=== PATIENT | female | born 1945 | race Caucasian/White ===

== ENCOUNTER 2025-03-30 13:19 | Outpatient (AMB) | payer OTHER, SELFPAY ==
--- NOTE | 2025-03-30 13:24 | A.OFFVIS_ITS ---
Vital Signs 3 03/30/25 13:28 Height 5 ft 2 in Weight 201 lb 8 oz BMI 36.9 BP 110/50 L Blood Pressure Location Lt brachial Position Sitting Pulse 71 Pulse Source Pulse Oximeter Pulse Oximetry (%) 92 Oxygen Delivery Method Room Air Intake Visit Reasons: COPD Allergies nitrofurantoin (From Macrobid) Allergy (Intermediate, Verified 03/30/25 13:31) Difficulty Breathing Penicillins Allergy (Intermediate, Verified 03/30/25 13:31) Hives Iodinated Contrast Media (IV Contrast Dye) Allergy (Mild, Verified 03/30/25 13:31) Itching HPI HPI COPD: Details: Susannah is a pleasant 79-year-old female, former 20 pack year smoker, quit 40 years ago with underlying COPD, ELEAZAR on CPAP . She was referred by PCP for pulmonary evaluation. She was previously under the care [place] [facility] but due to insurance issues had to switch providers. She is presenting for management of COPD and ELEAZAR. She reports using the Stiolto inhaler, which she feels is ineffective, especially when she is in a hurry, leading to dyspnea even with minimal exertion such as walking down a corridor or to her car. She also notes intermittent, usually dry and wheezing. The patient has been experiencing these symptoms for quite some time and notes that they occur more frequently when she is in a hurry. She denies prior history of asthma or history of recurrent respiratory infections. 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 She has a history of mild sleep apnea and uses a CPAP machine regularly, although she reports persistent tiredness and frequent nocturnal awakenings to urinate. Her last sleep study indicated mild sleep apnea with oxygen saturation dropping to 84%, and she was advised to resume CPAP therapy. The patient reports a significant weight gain of 30 pounds over the past year, attributing it to stress-related eating habits. She acknowledges decreased physical activity and has been attempting to regain control over her weight. The patient also reports sinus issues, including drainage and occasional brown nasal discharge, which she suspects might be related to dry blood. She uses Flonase but is cautious due to potential nasal irritation and bleeding. [facility] Social History (Updated 03/30/25 @ 13:31 by Alanna Segal [facility]) Patient Tobacco Use Status: Former Tobacco user Review of Systems Const Denies chills, Denies excessive sweating, Denies fever(s), Denies headache(s) and Denies night sweats Eyes Denies dry eyes, Denies irritation and Denies itchy eyes ENT Reports Normal hearing present, Denies headache(s) and Denies sore throat Card Denies chest pain, Denies chest pain at rest, Denies chest pain with activity, Denies claudication, Denies leg edema, Denies orthopnea and Denies paroxysmal nocturnal dyspnea Resp Denies chest congestion, Denies excessive phlegm production, Denies pain on inspiration, Denies pain with cough and Denies stridor Musc Denies myalgias Neuro Reports Normal hearing present and Denies headache(s) Endo Denies excessive sweating Rahul/Lymph Denies lymphadenopathy Aller/Immun Denies itchy eyes and Denies seasonal rhinorrhea Physical Exam Vital Signs: Last Vital Signs Pulse 71 03/30/25 13:28 BP 110/50 L 03/30/25 13:28 Pulse Ox 92 03/30/25 13:28 Oxygen Delivery Method Room Air 03/30/25 13:28 BMI result Body Mass Index 36.9 Neuro Cranial nerves: Yes Normal hearing present Office Procedures 6 Minute Walk Time:: 14:16 SPO2 % at rest: 94 Pulse at rest: 73 SPO2 % during excercise: 91 Pulse during excercise: 98 Pulse after excercise: 92 Distance in yards walked: 92 Hesham Score: 6 Performance Observations:: Patient walked on level ground unassisted at a moderate pace. Patient walked for the entire time maintaining O2 saturation of 91-93% and pulse in the 90's. Patient reports she does get short of breath when walking a distance or on an incline. Patient did not require the use of supplemental oxygen. 12077 - 6 Minute Walk Results Reviewed Results Reviewed: Assessment & Plan Assessment & Plan (1) COPD (chronic obstructive pulmonary disease): Code(s): J44.9 - Chronic obstructive pulmonary disease, unspecified Category: Medical (2) ELEAZAR on CPAP: Code(s): G47.33 - Obstructive sleep apnea (adult) (pediatric) Category: Medical Plan Susannah presents for pulmonary evaluation continuing with respiratory symptoms despite Stiolto, will trial Trelegy. Discussed importance of good oral hygiene to prevent thrush. Last PFT performed 2023 which revealed mild obstructive defect, no need to repeat at this time. 6 minute walk test performed in office the patient does not require supplemental oxygen at this time. Advised patient to continue using the CPAP machine, and will reach out to [facility] to access machine data for pressure settings and efficacy evaluation. The patient is advised to use Neti pots instead of Flonase to reduce nasal irritation and bleeding. She reports prior chest x-ray performed at [facility], will attempt to obtain. All questions were answered and patient is in agreement of plan. Will follow-up in 6-8 weeks to assess effectiveness of Trelegy or sooner if needed. Orders: Orders 2 AMB 6 minute walk 03/30/25 J44.9 - Chronic obstructive pulmonary disease, unspecified Medications: New 2 [id number] 100-62.5-25 mcg (Trelegy Ellipta) 1 inh inhalation DAILY 60 ea 3RF Coding Level of Care Code New Pt Level 4 (91485) Diagnoses COPD (chronic obstructive pulmonary disease) J44.9 ELEAZAR on CPAP G47.33 CPT Codes Coding ([id number])
[2025-03-30 13:28] VITALS: BP 110/50; PULSE 71; O2SAT 92; BMI 36.9
[2025-03-30 14:32] VITALS: PULSE 73; O2SAT 94
--- OUTSIDE RECORDS SUMMARY | 2025-03-30 15:43 | XMS_ITS | Clinical Summary ---
Author Organization [address] [facility] Address [address] [place] [address] Phone Care Team Providers Care Boarding Specialist Name Role Phone Sammy Amato DO Primary Care Provider [phone] Allergies Active Allergy Reactions Criticality Noted Date Comments Iodinated Contrast Media 04/17/2021 Lisinopril 04/17/2021 Nitrofurantoin Monohyd/M-Cryst Shortness of breath High 2024 Nitrofurantoin Shortness of breath,Wheezing High 05/24/2020 Penicillin G 04/17/2021 Medications levothyroxine (SYNTHROID, LEVOTHROID) 88 mcg tablet Take 1 tablet (88 mcg total) by mouth 1 (one) time each day. 1 Active albuterol HFA (PROAIR HFA ; PROVENTIL HFA ; VENTOLIN HFA) 90 mcg/actuation inhaler Inhale 2 puffs by mouth every 6 (six) hours if needed for wheezing or shortness of breath. Cough 1 Active amLODIPine (NORVASC) 5 mg tablet Take 1 tablet (5 mg total) by mouth 1 (one) time each day. Active telmisartan (MICARDIS) 80 mg tablet Take 1 tablet (80 mg total) by mouth daily. 3 Active tiotropium-oloda teroL (Stiolto Respimat) 2.5-2.5 mcg/actuation mist inhalerIndicatio ns:Pulmonary emphysema, unspecified emphysema type (CMS/HCC V24, CMS/HCC V28) INHALE 2 PUFFS ONCE DAILY 4 g 3 5 Active Active Problems Problem Noted Date Diagnosed Date Obesity (BMI 30-39.9) 07/18/2024 Nocturnal hypoxia 05/20/2022 Overview (06/09/2024): Sleep study on 11/09/2021 did not reveal ELEAZAR but patient oxygen dropped to 87% and was <88% for 20 min 05/14/2022 OVERNIGHT OXIMETERY ON RA SHOWED; 1.TIME SPENT <=88%-13MIN 2.LOWEST O2-85% 3.PATIENT QUALIFIES FOR SUPPLEMENT. HTN (hypertension) 05/08/2021 Hypothyroidism 05/08/2021 ELEAZAR (obstructive sleep apnea) 05/08/2021 COPD (chronic obstructive pu lmonary disease) ([facility] V24, [facility] V28) 05/08/2021 Encounters Date Type Department Care Team Description 02/05/2025 Telephone Gastroenterology - [address] [facility] [address] [place] [address] Lore Farmer MD from Last 3 Months Immunizations Name Administration Dates Next Due Pfizer SARS-CoV-2 COVID-19, mRNA, LNP-S, preservative free 05/01/2021 Surgical History Surgery Date Site/Laterality Comments HYSTERECTOMY 1992 PROCEDURE: HISTORICAL HYSTERECTOMY COLONOSCOPY 07/22/2022 - 08/21/2022 left tics, rhoids (prn) Medical History Medical History Date Comments HTN (hypertension) DX:HTN (hyper tension) Family History Medical History Relation Name Comments Leukemia Brother No Known Problems Father Diabetes Maternal Grandmother No Known Problems Mother Thyroid disease Sister 1 No Known Problems Sister 2 Asthma Neg Hx COPD Neg Hx Lung cancer Neg Hx Lung disease Neg Hx Relation Name Status Comments Brother Alive Father Maternal Grandmother Mother Sister 1 Alive Sister 2 Alive Social History Tobacco Use Types Packs/Day Years Used Date Smoking Tobacco: Former Cigarettes 1 22 0 07/22/1960 - 07/22/1982 Smokeless Tobacco: Never Alcohol Use Standard Drinks/Week Comments Never 0 (1 standard drink = 0.6 oz pur e alcohol) Comments Unknown Sex and Gender Information Value Date Recorded Sex Assigned at Not on file Legal Sex Female 10:37 PM EST Gender Identity Not on file Sexual Orientation Not on file Obstetrics History Last Filed Vital Signs Vital Sign Reading Time Taken Comments Blood Pressure 130/80 2024 11:06 AM EST Pulse 71 2024 11:06 AM EST Temperature 36.9 C (98.4 F) 2024 11:06 AM EST Respiratory Rate 16 2024 11:06 AM EST Oxygen Saturation 94% 2024 11:06 AM EST Inhaled Oxygen Concentration - - Weight 87.5 kg (193 lb) 09/03/2024 12:37 PM EST Height 158.8 cm (5' 2.5 ) 09/03/2024 12:37 PM ES T Body Mass Index 34.74 09/03/2024 12:37 PM EST Plan of Treatment Health Maintenance Due Date Last Done Comments Cholesterol Screening (Lipid Panel) 06/30/2022 Falls Risk Assessment 06/30/2022 Medicare Annual Wellness Visit 06/30/2022 Social Influencers of Health Screening 06/30/2022 DTaP,Tdap,and Td Vaccines (2 - Td or Tdap) 07/22/2022 07/22/2012 Zoster Vaccines (3 of 3) 08/30/2023 07/05/2023, 07/2009 Depression Screening 07/22/2024 COVID-19 Vaccine ( season) 2025 03/30/2024, 06/27/2023, 03/22/2023, Additional history exists Influenza Vaccine (#1) 2025 , 06/27/2023, 05/02/2022, Additional history exists Hypertension/CHF/CAD Annual BMP Blood Test 01/05/2026 01/05/2025 Osteoporosis Screening (Bone Density Screening) 09/20/2026 09/20/2016 Hepatitis A Vaccines Aged Out 07/22/2003 No long er eligible based on patient's age to complete this topic Hepatitis B Vaccines Aged Out 07/22/2003 No long er eligible based on patient's age to complete this topic Pneumococcal Vaccine: 50+ Years Completed 08/14/2016, 07/22/2008 RSV Immunization Adult Patients Completed 06/27/2023 HIB Vaccines Aged Out No longer eligi ble based on patient's age to complete this topic HPV Vaccines Aged Out No longer eligi ble based on patient's age to complete this topic IPV Vaccines Aged Out No longer eligi ble based on patient's age to complete this topic MMR Vaccines Aged Out No longer eligi ble based on patient's age to complete this topic Meningococcal ACWY Vaccine Aged Out N o longer eligible based on patient's age to complete this topic Meningococcal B Vaccine Aged Out No l onger eligible based on patient's age to complete this topic RSV Immunization Patients Under 20 months Aged Out No longer eligible based on patient's age to complete this topic Varicella Vaccines Aged Out No longer eligible based on patient's age to complete this topic Procedures Procedure Name Priority Date/Time Associated Diagnosis Comments HELICOBACTER PYLORI ANTIGEN, STOOL Routine 01/15/2025 9:56 AM EDT Memory changes Epigastric abdominal pain COPD (chronic obstructive pulmonary disease) (CMS/HCC V24, CMS/HCC V28) PVC (premature ventricular contraction) Sleep apnea URINALYSIS WITH REFLEX MICROSCOPIC Routine 01/13/2025 1:16 PM EDT UTI (urinary tract infection) Urinary frequency URINALYSIS WITH REFLEX MICROSCOPIC Routine 01/13/2025 1:16 PM EDT UTI (urinary tract infection) Urinary frequency VAGINITIS PATHOGENS BY PCR Routine 01/13/2025 1:16 PM EDT UTI (urinary tract infection) Urinary frequency CULTURE URINE Routine 01/13/2025 1:16 PM EDT UTI (urinary tract infection) Urinary frequency METHYLMALONIC ACID, SERUM Routine 01/12/2025 10:01 AM EDT Memory changes Epigastric abdominal pain COPD (chronic obstructive pulmonary disease) (CMS/HCC V24, CMS/HCC V28) PVC (premature ventricular contraction) Sleep apnea FOLATE Routine 01/12/2025 10:01 AM EDT Memory changes Epigastric abdominal pain COPD (chronic obstructive pulmonary disease) (CMS/HCC V24, CMS/HCC V28) PVC (premature ventricular contraction) Sleep apnea VITAMIN B12 Routine 01/12/2025 10:01 AM EDT Memory changes Epigastric abdominal pain COPD (chronic obstructive pulmonary disease) (CMS/HCC V24, CMS/HCC V28) PVC (premature ventricular contraction) Sleep apnea CBC WITH AUTO DIFFERENTIAL Routine 01/05/2025 10:35 AM EDT Dizziness Sinus disorder Chest congestion Fatigue Chest pain COMPREHENSIVE METABOLIC PANEL Routine 01/05/2025 10:35 AM EDT Dizziness Sinus disorder Chest congestion Fatigue Chest pain CBC AND DIFFERENTIAL Routine 01/05/2025 10:35 AM EDT Dizziness Sinus disorder Chest congestion Fatigue Chest pain THYROID STIMULATING HORMONE Routine 01/05/2025 10:35 AM EDT Dizziness Sinus disorder Chest congestion Fatigue Chest pain from Last 3 Months Results * Helicobacter pylori antigen, stool (01/15/2025 9:56 AM EDT) Helicobacter Pylori Ag Not detected Not detected 01/19/2025 4:09 PM EDT [facility] Comment: This test was performed at [facility] using a chemiluminescent immunoassay intended for the qualitative determination of helicobacter pylori (H. pylori) antigen in human stool. The test is an aid in the diagnosis of patients suspected of H. pylori infection and to measure post therapy response from patients. Assay results should be used in conjunction with other clinical and laboratory data to assist the clinician in making individual patient management decisions. A negative test result does not preclude the possibility of the presence of H. pylori antigen in the specimen, which may occur if the level of antigen is below the detection limit of the test. Antimicrobials, proton pump inhibitors, and bismuth preparations are known to suppress H. pylori and, if ingested, may give a false negative result. In these cases a new fecal sample should be collected and tested 14 days after treatment has stopped. Positive results from patients that have used antibiotics, PPIs, or bismuth compounds in the 14 days prior to fecal sample collection are still considered accurate. This assay has not been evaluated in a pediatric population. This test has been approved as an in vitro diagnostic by the [place] Food and Drug Administration. Test performed at [facility], [address] , [place] [address] Grecia Rowe MD, PhD - Barkeeper Stool Rectum structure / Unknown Non-blood Collection / Unknown 01/15/2025 9:56 AM EDT 01/15/2025 9:56 AM EDT Cedric Vega LAB BODY FLUIDS AND STOOLS ORDER NIRAV Final Result [facility] [address] [place] [address] * (ABNORMAL) Urinalysis with reflex microscopic (01/13/2025 1:16 PM EDT) Specific [place] Urine 1.013 1.003 - 1.030 LAB URINALYSIS - AUTOMATED METHOD [facility] 3:[facility] pH, Urine 5.5 5.0 - 8.0 pH LAB URINALYSIS - AUTOMATED METHOD 01/13/2025 3:51 PM [facility] Leukocytes, Urine Large(A) Negative LAB URINALYSIS - AUTOMATED METHOD 01/13/2025 3:51 PM [facility] Nitrite, Urine Negative Negative LAB URINALYSIS - AUTOMATED METHOD 01/13/2025 3:51 PM [facility] Protein, Urine 30(A) <=Trace mg/dL LAB URINALYSIS - AUTOMATED METHOD 01/13/2025 3:51 PM [facility] Glucose, Urine Negative Negative mg/dL LAB URINALYSIS - AUTOMATED METHOD 01/13/2025 3:51 PM [facility] Ketones, Urine Negative Negative mg/dL LAB URINALYSIS - AUTOMATED METHOD 01/13/2025 3:51 PM [facility] Urobilinogen, Urine 0.2 0.2 - 1.0 mg/dL LAB URINALYSIS - AUTOMATED METHOD 01/13/2025 3:51 PM [facility] Bilirubin, Urine Negative Negative LAB URINALYSIS - AUTOMATED METHOD 01/13/2025 3:51 PM EDT [facility] Blood, Urine Small(A) Negative LAB URINALYSIS - AUTOMATED METHOD 01/13/2025 3:51 PM EDT [facility] RBC, Urine 2 0 - 4 /HPF LAB URINALYSIS - AUTOMATED METHOD 01/13/2025 3:51 PM EDT [facility] WBC, Urine 50(H) 0 - 4 /HPF LAB URINALYSIS - AUTOMATED METHOD 01/13/2025 3:51 PM EDT [facility] Squamous Epithelial, Urine 10 0 - 60 /LPF LAB URINALYSIS - AUTOMATED METHOD 01/13/2025 3:51 PM EDT [facility] Bacteria, Urine Few(A) Negative /HPF LAB URINALYSIS - AUTOMATED METHOD 01/13/2025 3:51 PM EDT [facility] Hyaline Casts, Urine 4(H) 0 - 3 /LPF LAB URINALYSIS - AUTOMATED METHOD 01/13/2025 3:51 PM EDT [facility] Urine Urine specimen obtained by clean catch procedure / Unknown Non-blood Collection / Unknown 01/13/2025 1:16 PM EDT 01/13/2025 1:16 PM EDT us Jenkins Eduardo CASTING AND PASTING SUPERVISOR LAB URINE ORDERABLES Final Resul t [facility] [address] [place] [address], * Vaginitis pathogens molecular study (01/13/2025 1:16 PM EDT) Trichomonas vaginalis Negative Negative 01/14/2025 10:57 AM EDT [facility] Gardnerella vaginalis Negative Negative 01/14/2025 10:57 AM EDT [facility] Monica Species Negative Negative 10:57 AM EDT [facility] Swab Vaginal structure / Unknown Non-blood Collection / Unknown 01/13/2025 1:16 PM EDT 01/13/2025 1:16 PM EDT Jenkins Eduardo CASTING AND PASTING SUPERVISOR LAB MICROBIOLOGY - GENERAL ORDER NIRAV Final Result [facility] [address] [place] [address], [place] [phone] * (ABNORMAL) Culture urine (01/13/2025 1:16 PM EDT) Culture, Urine 50,000-100,000 CFU/mL Escherichia coli(A) [place] 01/15/2025 8:17 AM EDT [facility] Urine Urine specimen from urethra / Unknown Non-blood Collection / Unknown 01/13/2025 1:16 PM EDT 01/13/2025 1:16 PM EDT Narrative Organism Antibiotic Method Susceptibility Escherichia coli Amoxicillin/Clavulanate [place] <=2 ug/ml: Susceptible Escherichia coli Ampicillin/Sulbactam [place] <=2 ug/ml: Susceptible Escherichia coli Piperacillin/Tazobactam [place] <=4 ug/ml: Susceptible Escherichia coli Cefazolin (Urine) [place] <=1 ug/ml: Susceptible Escherichia coli Cefoxitin [place] <=4 ug/ml: Susceptible Escherichia coli Ceftazidime [place] <=0.5 ug/ml: Susceptible Escherichia coli Ceftriaxone [place] <=0.25 ug/ml: Susceptible Escherichia coli Cefepime [place] <=0.12 ug/ml: Susceptible Escherichia coli Meropenem [place] <=0.25 ug/ml: Susceptible Escherichia coli Amikacin [place] 2 ug/ml: Susceptible Escherichia coli Gentamicin [place] <=1 ug/ml: Susceptible Escherichia coli Ciprofloxacin [place] <=0.06 ug/ml: Susceptible Escherichia coli Levofloxacin [place] <=0.12 ug/ml: Susceptible Escherichia coli Nitrofurantoin [place] <=16 ug/ml: Susceptible Escherichia coli Trimethoprim/Sulfamethoxazole [place] <=20 ug/ml: Susceptible us Jenkins Eduardo CASTING AND PASTING SUPERVISOR LAB MICROBIOLOGY - GENERAL ORDER NIRAV Final Result Performing Organization Address [facility] Co de Phone Number [facility] [address] [place] [address], [place] [phone] * (ABNORMAL) Methylmalonic acid, serum (01/12/2025 10:01 AM EDT) Methylmalonic Acid 0.41(H) <0.40 umol/L 01/15/2025 6:50 AM EDT [facility] Comment: If applicable, any drug confirmation testing reported here was developed and the performance characteristics determined by [facility]. This confirmation testing has not been cleared or approved by the FDA. The laboratory is regulated under CLIA as qualified to perform high-complexity testing. This test is used for patient testing purposes. It should not be regarded as investigational or for research. Test performed at [facility], [address] , [place] [address] Grecia Rowe MD, PhD - Barkeeper Blood Venous blood specimen / Unknown Venipuncture / Unknown 01/12/2025 10:01 AM EDT 01/12/2025 10:01 AM EDT Cedric Ferrari LAB BLOOD ORDERABLES Final Resul t Performing Organization Address [facility] Co de Phone Number [facility] [address] [place] [address] * (ABNORMAL) Folate (01/12/2025 10:01 AM EDT) Folate 18.6(H) 2.8 - 17.0 ng/ml LAB CHEMISTRY METHOD 01/12/2025 12:45 PM EDT [facility] Blood Venous blood specimen / Unknown Venipuncture / Unknown 01/12/2025 10:01 AM EDT 01/12/2025 10:01 AM EDT Cedric Ferrari LAB BLOOD ORDERABLES Final Resul t [facility] [address] [place] [address], * Vitamin B12 (01/12/2025 10:01 AM EDT) [facility] Vitamin B-12 387 250 - 900 pcg/mL LAB CHEMISTRY METHOD 01/12/2025 12:45 PM EDT [facility] Blood Venous blood specimen / Unknown Venipuncture / Unknown 01/12/2025 10:01 AM EDT 01/12/2025 10:01 AM EDT Cedric Ferrari LAB BLOOD ORDERABLES Final Resul t [facility] [address] [place] [address], * (ABNORMAL) CBC auto differential (01/05/2025 10:35 AM EDT) [facility] WBC 6.5 4.8 - 10.8 K/mcL LAB HEMETOLOGY METHOD 01/05/2025 11:09 AM EDT [facility] RBC 4.00 3.80 - 4.80 M/mcL LAB HEMETOLOGY METHOD 01/05/2025 11:09 AM EDT [facility] Hemoglobin 12.3 11.5 - 16.0 g/dL LAB HEMETOLOGY METHOD 01/05/2025 11:09 AM EDT [facility] Hematocrit 37.9 35.0 - 47.0 % LAB HEMETOLOGY METHOD 01/05/2025 11:09 AM EDT [facility] MCV 94.3 79.0 - 98.0 FL LAB HEMETOLOGY METHOD 01/05/2025 11:09 AM EDT [facility] MCH 30.6 27.0 - 32.0 pcg LAB HEMETOLOGY METHOD 01/05/2025 11:09 AM EDT [facility] MCHC 32.5 32.0 - 37.0 g/dL LAB HEMETOLOGY METHOD 01/05/2025 11:09 AM [facility] RDW 12.8 11.0 - 15.0 % LAB HEMETOLOGY METHOD 01/05/2025 11:09 AM [facility] Platelets 207 130 - 400 K/mcL LAB HEMETOLOGY METHOD 01/05/2025 11:09 AM [facility] MPV 11.6(H) 7.0 - 11.0 FL LAB HEMETOLOGY METHOD 01/05/2025 11:09 AM [facility] NRBC 0.0 <1.0 % LAB HEMETOLOGY METHOD 01/05/2025 11:09 AM [facility] NRBC Absolute 0.00 <0.10 K/mcL LAB HEMETOLOGY METHOD 01/05/2025 11:09 AM [facility] Neutrophils Relative 51.6 % LAB HEMETOLOGY METHOD 01/05/2025 11:09 AM [facility] Lymphocytes Relative 35.5 % LAB HEMETOLOGY METHOD 01/05/2025 11:09 AM [facility] Monocytes Relative 9.3 % LAB HEMETOLOGY METHOD 01/05/2025 11:09 AM [facility] Eosinophils Relative 2.5 % LAB HEMETOLOGY METHOD 01/05/2025 11:09 AM [facility] Basophils Relative 0.8 % LAB HEMETOLOGY METHOD 01/05/2025 11:09 AM [facility] Immature Granulocytes Relative 0.3 % LAB HEMETOLOGY METHOD 01/05/2025 11:09 AM [facility] Neutrophils Absolute 3.37 1.50 - 7.00 K/mcL LAB HEMETOLOGY METHOD 01/05/2025 11:09 AM [facility] Lymphocytes Absolute 2.32 1.00 - 5.00 K/mcL LAB HEMETOLOGY METHOD 01/05/2025 11:09 AM EDT [facility] Monocytes Absolute 0.61 0.20 - 1.00 K/mcL LAB HEMETOLOGY METHOD 01/05/2025 11:09 AM EDT [facility] Eosinophils Absolute 0.16 0.00 - 0.50 K/[facility] HEMETOLOGY METHOD 01/05/2025 11:09 AM EDT [facility] Basophils Absolute 0.05 0.00 - 0.20 K/[facility] HEMETOLOGY METHOD 01/05/2025 11:09 AM EDT [facility] Immature Granulocytes Absolute 0.02 0.00 - 0.03 K/[facility] HEMETOLOGY METHOD 01/05/2025 11:09 AM EDT [facility] Blood Venous blood specimen / Unknown Venipuncture / Unknown 01/05/2025 10:35 AM EDT 01/05/2025 10:35 AM EDT [facility] BLOOD ORDERABLES Final Resul t Performing Organization Address City/[facility]/ZIP Co de Phone Number [facility] [address] [place] [address], * Thyroid stimulating hormone (01/05/2025 10:35 AM EDT) TSH 1.27 0.40 - 4.00 mcIU/mL LAB CHEMISTRY METHOD 01/05/2025 1:37 PM EDT [facility] Blood Venous blood specimen / Unknown Venipuncture / Unknown 01/05/2025 10:35 AM EDT 01/05/2025 10:35 AM EDT [facility] BLOOD ORDERABLES Final Resul t [facility] [address] [place] [address], [place] [phone] * (ABNORMAL) Comprehensive metabolic panel (01/05/2025 10:35 AM EDT) Sodium 142 133 - 145 mmol/L LAB CHEMISTRY METHOD 01/05/2025 12:41 PM [facility] Potassium 4.0 3.5 - 5.5 mmol/L LAB CHEMISTRY METHOD 01/05/2025 12:41 PM [facility] Chloride 109 96 - 110 mmol/L LAB CHEMISTRY METHOD 01/05/2025 12:41 PM [facility] CO2 25 21 - 32 mmol/L LAB CHEMISTRY METHOD 01/05/2025 12:41 PM [facility] Anion Gap 8 3 - 11 LAB CHEMISTRY METHOD 01/05/2025 12:41 PM [facility] Glucose 90 70 - 100 mg/dL LAB CHEMISTRY METHOD 01/05/2025 12:41 PM [facility] BUN 13 5 - 25 mg/dL LAB CHEMISTRY METHOD 01/05/2025 12:41 PM [facility] Creatinine 0.67 0.50 - 1.10 mg/dL LAB CHEMISTRY METHOD 01/05/2025 12:41 PM [facility] eGFR 88 >=60 mL/min/1. 73m2 LAB CHEMISTRY METHOD 01/05/2025 12:41 PM [facility] Comment:Calculation based on the Chronic Kidney Disease Epidemiology Collaboration (CKD-EPI) equation refit without adjustment for race. BUN/Creatinine Ratio 19.4 LAB CHEMISTRY METHOD 01/05/2025 12:41 PM [facility] Calcium 8.4(L) 8.5 - 10.5 mg/dL LAB CHEMISTRY METHOD 01/05/2025 12:41 PM [facility] AST (SGOT) 14 10 - 42 unit/L LAB CHEMISTRY METHOD 01/05/2025 12:41 PM EDT [facility] ALT (SGPT) 22 10 - 60 unit/L LAB CHEMISTRY METHOD 01/05/2025 12:41 PM EDT [facility] Alkaline Phosphatase 78 42 - 121 unit/L LAB CHEMISTRY METHOD 01/05/2025 12:41 PM EDT [facility] Total Protein 6.5 6.0 - 8.0 g/dL LAB CHEMISTRY METHOD 01/05/2025 12:41 PM EDT [facility] Albumin 3.6 3.2 - 5.0 g/dL LAB CHEMISTRY METHOD 01/05/2025 12:41 PM EDT [facility] Total Bilirubin 0.7 0.0 - 1.4 mg/dL LAB CHEMISTRY METHOD 01/05/2025 12:41 PM EDT [facility] Blood Venous blood specimen / Unknown Venipuncture / Unknown 01/05/2025 10:35 AM EDT 01/05/2025 10:35 AM EDT us Cedric Ferrari LAB BLOOD ORDERABLES Final Resul t [facility] [address] [place] [address], [place] [phone] from Last 3 Months Insurance [facility] MEDICARE ADVANTAGE on file Advance Directives Documents on File Type Date Recorded 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 Health Care Decision (hx) 05/26/2020 AD [place]CG[place] DIRECTIVE Health Care Decision (hx) 05/26/2020 AD MCG[place]E DIRECTIVE Health Care Decision (hx) 05/26/2020 AD MCG[place]E DIRECTIVE Health Care Decision (hx) 05/26/2020 AD MCGHEE DIRECTIVE Health Care Decision (hx) 05/26/2020 AD MCGHEE DIRECTIVE Health Care Decision (hx) 05/26/2020 AD MCGHEE DIRECTIVE Health Care Decision (hx) 05/26/2020 AD MCGHEE DIRECTIVE Health Care Decision (hx) 05/26/2020 AD MCGHEE DIRECTIVE Health Care Decision (hx) 05/26/2020 AD MCGHEE DIRECTIVE Health Care Decision (hx) 05/26/2020 AD MCGHEE DIRECTIVE Health Care Decision (hx) 05/26/2020 AD MCGHEE DIRECTIVE Health Care Decision (hx) 05/26/2020 AD MCGHEE DIRECTIVE Health Care Decision (hx) 05/26/2020 AD MCGHEE DIRECTIVE Health Care Decision (hx) 05/24/2020 AD MCGHEE DIRECTIVE Health Care Decision (hx) 05/24/2020 AD MCGHEE DIRECTIVE Health Care Decision (hx) 05/24/2020 AD MCGHEE DIRECTIVE Health Care Decision (hx) 05/24/2020 AD MCGHEE DIRECTIVE Health Care Decision (hx) 05/24/2020 AD MCGHEE DIRECTIVE Health Care Decision (hx) 05/24/2020 AD MCGHEE DIRECTIVE Health Care Decision (hx) 05/24/2020 AD MCGHEE DIRECTIVE Health Care Decision (hx) 05/24/2020 AD MCGHEE DIRECTIVE Health Care Decision (hx) 05/24/2020 AD MCGHEE DIRECTIVE Health Care Decision (hx) 05/24/2020 AD MCGHEE DIRECTIVE Health Care Decision (hx) 05/24/2020 AD MCGHEE DIRECTIVE Health Care Decision (hx) 05/24/2020 AD MCGHEE DIRECTIVE Health Care Decision (hx) 05/24/2020 AD MCGHEE DIRECTIVE Health Care Decision (hx) 05/24/2020 AD MCGHEE DIRECTIVE Care Teams Boarding Specialist Relationship Specialty Start Date End Date Sammy Amato DO [address] [place] [phone] PCP - General Internal Medicine 08/24/20
--- OUTSIDE RECORDS SUMMARY | 2025-03-30 15:43 | XMS_ITS | Clinical Summary ---
Author Organization [facility] Address [address] [facility] [address] [place] [phone] Phone Care Team Providers Care Web Content Executive Name Role Phone Sammy Amato DO Primary Care Provider [phone] Allergies Active Allergy Reactions Criticality Noted Date Comments Iodinated Contrast Media Itching 05/05/2014 Lactose 05/26/2020 Lisinopril 04/17/2021 Nitrofurantoin Shortness Of Breath,Wheezing High 09/2019 Penicillins Hives,Swelling Low 05/05/2014 Medications amLODIPine (NORVASC) 5 MG tablet Take 5 mg by mouth. 08/30/2023 Active estradioL (ESTRACE) 0.01 % (0.1 mg/gram) vaginal cream 05/23/2024 Activ e STIOLTO RESPIMAT 2.5-2.5 mcg/actuation inhaler Inhale 2 puffs into the lungs. 12/24/2023 Active levothyroxine (SYNTHROID, LEVOTHROID) 88 MCG tablet 1 tablet on an empty stomach in the morning Active telmisartan (MICARDIS) 80 MG tablet Take 1 tablet by mouth every morning. 05/22/2024 Active meloxicam (MOBIC) 7.5 MG tablet Take 1 tablet (7.5 mg total) by mouth daily. 30 tablet 2 06/24/2024 Active Social History Tobacco Use Types Packs/Day Years Used Date Smoking Tobacco: Never Smokeless Tobacco: Never Tobacco Cessation:Counseling Given: Not Answered Education Answer Date Recorded Are you interested in more education? Not on zhao e 05/12/2024 Are you concerned about learning? Not on file 05/12/2024 No 05/12/2024 No 05/12/2024 Digital Access Answer Date Recorded No 05/12/2024 No 05/12/2024 Reliable internet access at home? Not on file 05/12/2024 Device with a working camera? Not on file Comments Unknown Sex and Gender Information Value Date Recorded Sex Assigned at Not on file Legal Sex Female 9:10 AM EDT Gender Identity Not on file Sexual Orientation Not on file Plan of Treatment Health Maintenance Due Date Last Done Comments CREATININE LEVEL 1943 POTASSIUM LEVEL 1943 TSH LEVEL 1943 DEPRESSION SCREENING 1955 PNEUMOCOCCAL VACCINES (50+ years) (1 of 1 - PCV) 1993 OSTEOPOROSIS SCREENING INITIAL (ONE-TIME) 2008 Adult Td,Tdap Booster 07/22/2022 07/22/2012 ZOSTER VACCINES (3 of 3) 08/30/2023 07/05/2023, 07/2009 INFLUENZA VACCINE (#1) 2025 , 06/27/2023, 05/02/2022, Additional history exists COVID-19 VACCINE ( season) 2025 03/30/2024, 06/27/2023, 03/22/2023, Additional history exists RSV VACCINE Completed 06/27/2023 HEPATITIS A VACCINES Aged Out No long er eligible based on patient's age to complete this topic HIB VACCINES Aged Out No longer eligi ble based on patient's age to complete this topic MENINGOCOCCAL VACCINES (ACWY) Aged Out No longer eligible based on patient's age to complete this topic MENINGOCOCCAL VACCINES (B) Aged Out N o longer eligible based on patient's age to complete this topic Medical Devices Not on file Insurance [employer] MEDICARE REPLACEMENT [employer] PPO MEDICARE REPLACEMENT [employer] PPO MEDICARE REPLACEMENT [employer] PPO MEDICARE REPLACEMENT HUMAN PPO MEDICARE REPLACEMENT [employer] PPO MEDICARE REPLACEMENT Care Teams Web Content Executive Relationship Specialty Start Date End Date Sammy Amato DO [address] [place] [address] [address] [place] [address] PCP - General Internal Medicine 05/12/24 Additional Source Comments The information contained in this document represents components of the legal health record. It is not the complete legal health record.[facility]
--- OUTSIDE RECORDS SUMMARY | 2025-03-30 15:43 | XMS_ITS ---
Author Name [facility] Organization Unknown Encounters Encounter Type Encounter Reason Primary Diagnosis Location Date Ambulatory [facility] 09/23/2024 Ambulatory [facility] 09/23/2024 Ambulatory [facility] 09/23/2024
--- OUTSIDE RECORDS SUMMARY | 2025-03-30 15:43 | XMS_ITS | Patient Health Record ---
Author Organization [facility] Address [address] [place] [address] Care Team Providers Care Casting Machine Service Operator Name Role Phone Lima NASCIMENTO, Sammy Primary Care Provider Amirah Estrada Unavailable [phone] Allergies Allergen (clinical drug ingredient) Drug/Non Drug Allergy documented on EMR Reaction Allergy Type Onset Date Status Iodine Unknown Drug Allergy Active Penicillin Unknown Drug Allergy Active Reason For Referral No Information Medications Medication SIG (Take, Route, Frequency, Duration) Notes Start Date End Date Status LamISIL 250 MG 1 tablet Orally Once a day for 7 days stop for 3 weeks repeat cylce 12 months; Duration: 365 days 03/07/2018 Not-Taking Diclofenac Sodium 1 % as directed Transdermal Four times a day; Duration: 30 days 05/12/2019 Not-Taking Lamisil 250mg 1 tablet for 7 days,stop for 3 weeks repeat cycle orally as directed; Duration: 90 days 03/13/2021 Not-Taking ASO Ankle/Foot Stablizing AFO As directed Wear Daily; Duration: as needed 04/14/2019 Not-Taking Losartan Potassium 50 MG 1 tablet Orally Once a day Not-Taking Telmisartan 80 MG 1 tablet Orally Once a day Active Citalopram Hydrobromide 10 MG/5ML 5 ml Orally Once a day Active amLODIPine Besylate 10 MG 1 tablet Orall y Once a day Active Levothyroxine Sodium 88 MCG 1 tablet on an empty stomach in the morning Orally Once a day Active Stiolto Respimat Act bandar hydroCHLOROthiazide Not-Taking Immunizations Vaccine Route Administration Date Status Comme nts COVID-19 Pfizer BioNTech Vaccine Unknown 09/08/2020 Administered Second Dose: Social History Tobacco Use: Social History Observation Description Date Details (start date - stop date) Former Smoker NA - NA Tobacco Use/Smoking Question Answer Notes Are you a: former smoker When did you stop smoking? 35 yrs ago Additional Findings: Tobacco Non-User Current no n-smoker Alcohol Screen Question Answer Notes Did you have a drink containing alcohol in the p ast year? No Points 0 Interpretation Negative Tobacco use other than smoking: Question Answer Notes Are you an other tobacco user? No Problems Problem Type SNOMED Code ICD Code Onset Dates Problem Status W/U Status Risk Notes Problem Pronation deformity of left foot (M21.6X2) Active confirmed Plan Of Treatment Pending Test Test Name Order Date *Liver Function Test (LFT) 03/05/2018 *Liver Function Test (LFT) 03/02/2021 [id number] NAIL, 6 OR MORE 06/02/2021 [id number] NAIL, 6 OR MORE 12/15/2021 [id number] NAIL, 6 OR MORE 08/17/2022 [id number] NAIL, 6 OR MORE 05/21/2018 [id number] NAIL, 6 OR MORE 08/20/2018 [id number] NAIL, 6 OR MORE 11/19/2018 [id number] NAIL, 6 OR MORE 02/18/2019 [id number] NAIL, 6 OR MORE 08/12/2019 [id number] NAIL, 6 OR MORE 03/02/2021 [id number] Plate 03/02/2021 [id number] Plate 06/02/2021 Insurance Providers Payer Name Payer Address Payer Phone Subscriber Number Group Number Insured Name Patient Relationship to Insured Coverage Start Date Coverage End Date [employer] [address] [address] [place] [address] [id number] Susannah Albert Self - patient is the insured Medical (General) History Medical History History ICD Code Arthritis Back,Hip,and Knee pain Broken bones Cancer Depression High blood pressure Osteoporosis thyroid Measles Mumps Chicken pox Sleep apnea Surgical History Surgery Date(Month/Year) cancer surgery 03/1993 right hip replacement 05/2020 colonoscopy 08/15/22
== END 2025-03-30 14:24 | disposition home or self-care (01) ==
LOC: HO.HPSW 13:19
PROVIDERS: PCP Internal Medicine; Referring Provider Internal Medicine; Visit Provider Nurse Practitioner Family
DX: J44.9 Chronic obstructive pulmonary disease, unspecified (principal); G47.33 Obstructive sleep apnea (adult) (pediatric)
CPT/HCPCS: 99204

== ENCOUNTER → 2025-03-30 13:19 | Outpatient (BNVA) | payer OTHER, SELFPAY | PROVIDERS: PCP Internal Medicine; Referring Provider Internal Medicine; Visit Provider Nurse Practitioner Family | DX: J44.9 Chronic obstructive pulmonary disease, unspecified (principal); G47.33 Obstructive sleep apnea (adult) (pediatric) | CPT/HCPCS: 94618 ==

== ENCOUNTER 2025-04-23 15:17 | Outpatient (AMB) | payer OTHER, SELFPAY ==
--- OUTSIDE RECORDS SUMMARY | 2025-04-23 15:19 | XMS_ITS | Encounter Summary ---
Author Organization [facility] [place] [address] Care Team Providers Care Casino Surveillance Officer Name Role Phone VaibhavSammy paulson Primary Care Provider Encounter Details Date Type Department Care Team (Late Contact Info) Description 03/31/2025 Lab Requisition [facility] - Main Lab [address] [facility] [place] [phone] Nan Laurent, DRAFTING DETAILER [address] [place] [phone] Urinary tract infection, site not specified; Hematuria, unspecified Social History Tobacco Use Types Packs/Day Years [...] on file Sexual Orientation Not on file documented as of this encounter Plan of Treatment Upcoming Encounters Date Type Department Care Team (Late Contact Info) Description 06/16/2025 7:30 AM EST Appointment [facility] [address] [phone] 06/16/2025 8:00 AM EST Appointment [facility] [address] [place] [phone] documented as of this encounter Procedures Procedure Name Priority Date/Time Associated Diagnosis Comments URINALYSIS WITH REFLEX MICROSCOPIC Routine 03/31/2025 2:00 PM EDT Urinary tract infection, site not specified Hematuria, unspecified URINALYSIS WITH REFLEX MICROSCOPIC Routine 03/31/2025 2:00 PM EDT Urinary tract infection, site not specified Hematuria, unspecified CULTURE URINE Routine 03/31/2025 2:00 PM EDT Urinary tract infection, site not specified Hematuria, unspecified documented in this encounter Results * Urinalysis with reflex microscopic (03/31/2025 2:00 PM EDT) Specific [place] Urine 1.011 1.003 - 1.030 LAB URINALYSIS - AUTOMATED METHOD 03/31/2025 3:47 PM [facility] pH, Urine 5.5 5.0 - 8.0 pH LAB URINALYSIS - AUTOMATED METHOD 03/31/2025 3:47 PM [facility] Leukocytes, Urine Negative Negative LAB URINALYSIS - AUTOMATED METHOD 03/31/2025 3:47 PM [facility] Nitrite, Urine Negative Negative LAB URINALYSIS - AUTOMATED METHOD 03/31/2025 3:47 PM [facility] Protein, Urine Negative <=Trace mg/dL LAB URINALYSIS - AUTOMATED METHOD 03/31/2025 3:47 PM [facility] Glucose, Urine Negative Negative mg/dL LAB URINALYSIS - AUTOMATED METHOD 03/31/2025 3:47 PM [facility] Ketones, Urine Negative Negative mg/dL LAB URINALYSIS - AUTOMATED METHOD 03/31/2025 3:47 PM [facility] Urobilinogen, Urine 0.2 0.2 - 1.0 mg/dL LAB URINALYSIS - AUTOMATED METHOD 03/31/2025 3:47 PM [facility] Bilirubin, Urine Negative Negative LAB URINALYSIS - AUTOMATED METHOD 03/31/2025 3:47 PM EDT [facility] Blood, Urine Negative Negative LAB URINALYSIS - AUTOMATED METHOD 03/31/2025 3:47 PM EDT [facility] Urine Urine specimen obtained by clean catch procedure / Unknown 03/31/2025 2:00 PM EDT 03/31/2025 3:38 PM EDT us Nan Laurent NP LAB URINE ORDERABLES Fi nal Result Performing Organization Address [facility]/ZIP Co de Phone Number [facility] [address] [place] [address], [place] [phone] * Culture urine (03/31/2025 2:00 PM EDT) Culture, Urine No growth 04/01/2025 7:42 AM EDT [facility] Urine Urine specimen obtained by clean catch procedure / Unknown 03/31/2025 2:00 PM EDT 03/31/2025 3:38 PM EDT us Nan Laurent NP LAB MICROBIOLOGY - GENE RAL ORDERABLES Final Result Performing Organization Address City/[facility]/ZIP Co de Phone Number [facility] [address] [place] [address], [place] [phone] documented in this encounter Visit Diagnoses Diagnosis Urinary tract infection, site not specified Hematuria, unspecified documented in this encounter Care Teams Casino Surveillance Officer Relationship Specialty Start Date End Date Sammy Amato DO [address] [place] [phone] PCP - General Internal Medicine 08/24/20 documented as of this encounter
--- OUTSIDE RECORDS SUMMARY | 2025-04-23 15:20 | XMS_ITS | Clinical Summary ---
Author Organization [facility] Address [address] [facility] [address] [place] [address] Phone Care Team Providers Care Patternmaker Apprentice Wood Name Role Phone Sammy Amato DO Primary Care Provider [phone] Allergies Active Allergy Reactions Criticality Noted Date [...] topic Medical Devices Not on file [facility] [employer] PPO MEDICARE REPLACEMENT [employer] PPO MEDICARE REPLACEMENT [employer] PPO MEDICARE REPLACEMENT HUMAN PPO MEDICARE REPLACEMENT [employer] PPO MEDICARE REPLACEMENT Care Teams Patternmaker Apprentice Wood Relationship Specialty Start Date End Date Sammy Amato DO [address] [place] [address] [address] [place] [address] PCP - General Internal Medicine 05/12/24 Additional Source Comments The information contained in this document represents components of the legal health record. It is not the complete legal health record.[facility]
--- OUTSIDE RECORDS SUMMARY | 2025-04-23 15:20 | XMS_ITS | Patient Health Record ---
[facility] Address [address] [place] [address] Care Team Providers Care Lead Neurodiagnostic Technologist Name Role Phone Lima NASCIMENTO, Sammy Primary Care Provider Amirah Estrada Unavailable [phone] Allergies Allergen (clinical drug ingredient) Drug/Non Drug [...] (LFT) 03/05/2018 *Liver Function Test (LFT) 03/02/2021 [id number] NAIL, 6 OR MORE 06/02/2021 [id number] NAIL, 6 OR MORE 12/15/2021 [id number] NAIL, 6 OR MORE 08/17/2022 [id number] NAIL, 6 OR MORE 05/21/2018 [id number] NAIL, 6 OR MORE 08/20/2018 [id number] NAIL, 6 OR MORE 11/19/2018 [id number] NAIL, 6 OR MORE 02/18/2019 [id number] NAIL, 6 OR MORE 08/12/2019 [id number] NAIL, 6 OR MORE 03/02/2021 [id number] Plate 03/02/2021 [id number] Plate 06/02/2021 Insurance Providers Payer Name Payer Address Payer Phone Subscriber Number Group Number Insured Name Patient Relationship to Insured Coverage Start Date Coverage End Date [employer] Claims [address] [address] [place] [address] [id number] Susannah Albert Self - patient is the insured Medical (General) History Medical History History ICD Code Arthritis Back,Hip,and Knee pain Broken bones Cancer Depression High blood pressure Osteoporosis thyroid Measles Mumps Chicken pox Sleep apnea Surgical History Surgery Date(Month/Year) cancer surgery 03/1993 right hip replacement 05/2020 colonoscopy 08/15/22
--- OUTSIDE RECORDS SUMMARY | 2025-04-23 15:20 | XMS_ITS | Clinical Summary ---
Author Organization 175 [facility] Address [address] [place] [address] Phone Care Team Providers Care Stator Winder Name Role Phone Sammy Amato DO Primary Care Provider [phone] Allergies Active Allergy Reactions Criticality Noted Date [...] mist inhalerIndicatio ns:Pulmonary emphysema, unspecified emphysema type INHALE 2 PUFFS ONCE DAILY 4 g [...] 05/08/2021 COPD (chronic obstructive pu lmonary disease) ([facility] V24, [facility] V28) 05/08/2021 Encounters Date Type Department Care Team Description 03/31/2025 Lab Requisition [facility] - Main Lab [address] [facility] [place] [address] Nan Laurent, CORKY Urinary tract infection, site not specified; Hematuria, unspecified 02/05/2025 Telephone Gastroenterology - [address] [facility] [address] [place] [address] Lore Farmer MD from Last 3 Months Immunizations Immunization Administration Dates Next Due Pfizer SARS-CoV-2 COVID-19, [...] 09/03/2024 12:37 PM EST Plan of Treatment Upcoming Encounters Date Type Department Care Team (Late st Contact Info) Description 06/16/2025 7:30 AM EST Appointment [facility] [address] [place] [address] 06/16/2025 8:00 AM EST Appointment [facility] Bone Density [address] [place] [id number] Health Maintenance Due Date Last Done Comments Falls Risk Assessment 06/30/2022 Medicare Annual Wellness Visit 06/30/2022 Social Influencers of Health Screening 06/30/2022 DTaP,Tdap,and Td Vaccines (2 - Td or Tdap) 07/22/2022 07/22/2012 Zoster Vaccines (3 of 3) 08/30/2023 07/05/2023, 07/2009 Depression Screening 07/22/2024 COVID-19 Vaccine ( season) 2025 03/30/2024, 06/27/2023, 03/22/2023, Additional history exists Influenza Vaccine (#1) 2025 , 06/27/2023, 05/02/2022, Additional history exists Hypertension/CHF/CAD Annual BMP Blood Test 04/14/2026 04/14/2025, 01/05/2025 Osteoporosis Screening (Bone Density Screening) 09/20/2026 09/20/2016 Cholesterol Screening (Lipid Panel) 04/14/2030 04/14/2025 Hepatitis A Vaccines Aged Out 07/22/2003 No [...] Procedure Name Priority Date/Time Associated Diagnosis Comments CBC WITH AUTO DIFFERENTIAL Routine 04/14/2025 9:36 AM EDT Myxedema heart disease Essential hypertension, malignant Impaired fasting glucose HEMOGLOBIN A1C Routine 04/14/2025 9:36 AM EDT Myxedema heart disease Essential hypertension, malignant Impaired fasting glucose COMPREHENSIVE METABOLIC PANEL Routine 04/14/2025 9:36 AM EDT Myxedema heart disease Essential hypertension, malignant Impaired fasting glucose CBC AND DIFFERENTIAL Routine 04/14/2025 9:36 AM EDT Myxedema heart disease Essential hypertension, malignant Impaired fasting glucose THYROID STIMULATING HORMONE Routine 04/14/2025 9:36 AM EDT Myxedema heart disease Essential hypertension, malignant Impaired fasting glucose LIPID PANEL WITH REFLEX TO DIRECT LDL Routine 04/14/2025 9:36 AM EDT Myxedema heart disease Essential hypertension, malignant Impaired fasting glucose URINALYSIS WITH REFLEX MICROSCOPIC Routine 03/31/2025 2:00 PM EDT Urinary tract infection, site not specified Hematuria, unspecified URINALYSIS WITH REFLEX MICROSCOPIC Routine 03/31/2025 2:00 PM EDT Urinary tract infection, site not specified Hematuria, unspecified CULTURE URINE Routine 03/31/2025 2:00 PM EDT Urinary tract infection, site not specified Hematuria, unspecified from Last 3 Months Results * Lipid panel with reflex to direct LDL (04/14/2025 9:36 AM EDT) Cholesterol 184 0 - 200 mg/dL LAB CHEMISTRY METHOD 04/14/2025 2:04 PM [facility] Triglycerides 60 0 - 150 mg/dL LAB CHEMISTRY METHOD 04/14/2025 2:04 PM [facility] HDL 87 >=40 mg/dL LAB CHEMISTRY METHOD 04/14/2025 2:04 PM [facility] LDL Calculated 85 0 - 100 mg/dL LAB CHEMISTRY METHOD 04/14/2025 2:04 PM [facility] Comment:Estimated LDL Calcul ated using equation: Total cholesterol - HDL cholesterol - (Triglycerides/5) VLDL Cholesterol Shady 12 mg/dL LAB CHEMISTRY METHOD 04/14/2025 2:04 PM [facility] Non HDL Chol. (LDL+VLDL) 97 <145 mg/dL LAB CHEMISTRY METHOD 04/14/2025 2:04 PM [facility] Chol/HDL Ratio 2.1 0.0 - 4.4 LAB CHEMISTRY METHOD 04/14/2025 2:04 PM [facility] Blood Venous blood specimen / Unknown Venipuncture / Unknown 04/14/2025 9:36 AM EDT 04/14/2025 9:36 AM EDT us Nan Laurent [employer]CH[employer]URAL JOB [employer]TAIN LAB BLOOD ORDERABLES Fi nal Result [facility] [address] [place] [address], [place] [phone] * (ABNORMAL) CBC auto differential (04/14/2025 9:36 AM EDT) WBC 7.0 4.8 - 10.8 K/mcL LAB HEMETOLOGY METHOD 04/14/2025 11:13 AM EDT [facility] RBC 4.40 3.80 - 4.80 M/mcL LAB HEMETOLOGY METHOD 04/14/2025 11:13 [facility] Hemoglobin 12.8 11.5 - 16.0 g/dL LAB HEMETOLOGY METHOD 04/14/2025 11:13 AM EDT [facility] Hematocrit 39.9 35.0 - 47.0 % LAB HEMETOLOGY METHOD 04/14/2025 11:13 AM EDT [facility] MCV 91.7 79.0 - 98.0 FL LAB HEMETOLOGY METHOD 04/14/2025 11:13 AM [facility] MCH 29.4 27.0 - 32.0 pcg LAB HEMETOLOGY METHOD 04/14/2025 11:13 AM EDT [facility] MCHC 32.1 32.0 - 37.0 g/dL LAB HEMETOLOGY METHOD 04/14/2025 11:13 AM [facility] RDW 13.0 11.0 - 15.0 % LAB HEMETOLOGY METHOD 04/14/2025 11:13 AM [facility] Platelets 242 130 - 400 K/mcL LAB HEMETOLOGY METHOD 04/14/2025 11:13 AM EDT [facility] MPV 11.5(H) 7.0 - 11.0 FL LAB HEMETOLOGY METHOD 04/14/2025 11:13 AM [facility] NRBC 0.0 <1.0 % LAB HEMETOLOGY METHOD 04/14/2025 11:13 AM [facility] NRBC Absolute 0.00 <0.10 K/mcL LAB HEMETOLOGY METHOD 04/14/2025 11:13 AM [facility] Neutrophils Relative 52.2 % LAB HEMETOLOGY METHOD 04/14/2025 11:13 AM [facility] Lymphocytes Relative 34.5 % LAB HEMETOLOGY METHOD 04/14/2025 11:13 AM [facility] Monocytes Relative 9.4 % LAB HEMETOLOGY METHOD 04/14/2025 11:13 AM [facility] Eosinophils Relative 3.0 % LAB HEMETOLOGY METHOD 04/14/2025 11:13 AM [facility] Basophils Relative 0.6 % LAB HEMETOLOGY METHOD 04/14/2025 11:13 AM [facility] Immature Granulocytes Relative 0.3 % LAB HEMETOLOGY METHOD 04/14/2025 11:13 AM [facility] Neutrophils Absolute 3.68 1.50 - 7.00 K/mcL LAB HEMETOLOGY METHOD 04/14/2025 11:13 AM [facility] Lymphocytes Absolute 2.43 1.00 - 5.00 K/mcL LAB HEMETOLOGY METHOD 04/14/2025 11:13 AM [facility] Monocytes Absolute 0.66 0.20 - 1.00 K/mcL LAB HEMETOLOGY METHOD 04/14/2025 11:13 AM [facility] Eosinophils Absolute 0.21 0.00 - 0.50 K/mcL LAB HEMETOLOGY METHOD 04/14/2025 11:13 AM [facility] Basophils Absolute 0.04 0.00 - 0.20 K/[facility] LAB HEMETOLOGY METHOD 04/14/2025 11:13 AM EDT [facility] Immature Granulocytes Absolute 0.02 0.00 - 0.03 K/[facility] LAB HEMETOLOGY METHOD 04/14/2025 11:13 AM EDT [facility] Blood Venous blood specimen / Unknown Venipuncture / Unknown 04/14/2025 9:36 AM EDT 04/14/2025 9:36 AM EDT us Nan Laurent NP LAB BLOOD ORDERABLES Fi nal Result Performing Organization Address [facility]/ZIP Co de Phone Number [facility] [address] [place] [address], [place] [phone] * Thyroid stimulating hormone (04/14/2025 9:36 AM EDT) [facility] TSH 1.34 0.40 - 4.00 mcIU/mL LAB CHEMISTRY METHOD 04/14/2025 3:43 PM EDT [facility] Blood Venous blood specimen / Unknown Venipuncture / Unknown 04/14/2025 9:36 AM EDT 04/14/2025 9:36 AM EDT us Nan Laurent NP LAB BLOOD ORDERABLES Fi nal Result [facility] [address] [place] [address], [place] [phone] * Hemoglobin A1c (04/14/2025 9:36 AM EDT) Pathologist [facility] Hemoglobin A1C 5.8 <6.5 % LAB CHEMISTRY METHOD 04/14/2025 1:35 PM EDT [facility] Mean Bld Glu Estim. 120 mg/dL LAB CHEMISTRY METHOD 04/14/2025 1:35 PM [facility] Blood Venous blood specimen / Unknown Venipuncture / Unknown 04/14/2025 9:36 AM EDT 04/14/2025 9:36 AM EDT us Nan Laurent [employer]CHITECTURAL JOB CAPTAIN LAB BLOOD ORDERABLES Fi nal Result [facility] [address] [place] [address], * Comprehensive metabolic panel (04/14/2025 9:36 AM EDT) Sodium 138 133 - 145 mmol/L LAB CHEMISTRY METHOD 04/14/2025 2:03 PM [facility] Potassium 4.2 3.5 - 5.5 mmol/L LAB CHEMISTRY METHOD 04/14/2025 2:03 PM [facility] Chloride 103 96 - 110 mmol/L LAB CHEMISTRY METHOD 04/14/2025 2:03 PM [facility] CO2 26 21 - 32 mmol/L LAB CHEMISTRY METHOD 04/14/2025 2:03 PM [facility] Anion Gap 9 3 - 11 LAB CHEMISTRY METHOD 04/14/2025 2:03 PM [facility] Glucose 80 70 - 100 mg/dL LAB CHEMISTRY METHOD 04/14/2025 2:03 PM [facility] BUN 15 5 - 25 mg/dL LAB CHEMISTRY METHOD 04/14/2025 2:03 PM [facility] Creatinine 0.53 0.50 - 1.10 mg/dL LAB CHEMISTRY METHOD 04/14/2025 2:03 PM [facility] eGFR 93 >=60 mL/min/1. 73m2 LAB CHEMISTRY METHOD 04/14/2025 2:03 PM [facility] Comment:Calculation based on the Chronic Kidney Disease Epidemiology Collaboration (CKD-EPI) equation refit without adjustment for race. BUN/Creatinine Ratio 28.3 LAB CHEMISTRY METHOD 04/14/2025 2:03 PM [facility] Calcium 9.0 8.5 - 10.5 mg/dL LAB CHEMISTRY METHOD 04/14/2025 2:03 PM [facility] AST (SGOT) 18 10 - 42 unit/L LAB CHEMISTRY METHOD 04/14/2025 2:03 PM [facility] ALT (SGPT) 22 10 - 60 unit/L LAB CHEMISTRY METHOD 04/14/2025 2:03 PM [facility] Alkaline Phosphatase 87 42 - 121 unit/L LAB CHEMISTRY METHOD 04/14/2025 2:03 PM [facility] Total Protein 6.9 6.0 - 8.0 g/dL LAB CHEMISTRY METHOD 04/14/2025 2:03 PM [facility] Albumin 3.9 3.2 - 5.0 g/dL LAB CHEMISTRY METHOD 04/14/2025 2:03 PM [facility] Total Bilirubin 0.9 0.0 - 1.4 mg/dL LAB CHEMISTRY METHOD 04/14/2025 2:03 PM [facility] Blood Venous blood specimen / Unknown Venipuncture / Unknown 04/14/2025 9:36 AM EDT 04/14/2025 9:36 AM EDT us Nan Laurent ARCHITECTURAL JOB CAPTAIN LAB BLOOD ORDERABLES Fi nal Result [facility] [address] [place] [address], * Urinalysis with reflex microscopic (03/31/2025 2:00 PM EDT) Specific [place] Urine 1.011 1.003 - 1.030 LAB URINALYSIS - AUTOMATED METHOD 03/31/2025 3:47 PM [facility] pH, Urine 5.5 5.0 - 8.0 pH LAB URINALYSIS - AUTOMATED METHOD 03/31/2025 3:47 PM EDT [facility] Leukocytes, Urine Negative Negative LAB URINALYSIS - AUTOMATED METHOD 03/31/2025 3:47 PM EDT [facility] Nitrite, Urine Negative Negative LAB URINALYSIS - AUTOMATED METHOD 03/31/2025 3:47 PM EDT [facility] Protein, Urine Negative <=Trace mg/dL LAB URINALYSIS - AUTOMATED METHOD 03/31/2025 3:47 PM EDT [facility] Glucose, Urine Negative Negative mg/dL LAB URINALYSIS - AUTOMATED METHOD 03/31/2025 3:47 PM [facility] Ketones, Urine Negative Negative mg/dL LAB URINALYSIS - AUTOMATED METHOD 03/31/2025 3:47 PM EDT [facility] Urobilinogen, Urine 0.2 0.2 - 1.0 mg/dL LAB URINALYSIS - AUTOMATED METHOD 03/31/2025 3:47 PM T [facility] Bilirubin, Urine Negative Negative LAB URINALYSIS - AUTOMATED METHOD 03/31/2025 3:47 PM T [facility] Blood, Urine Negative Negative LAB URINALYSIS - AUTOMATED METHOD 03/31/2025 3:47 PM T [facility] Urine Urine specimen obtained by clean catch procedure / Unknown 03/31/2025 2:00 PM EDT 03/31/2025 3:38 PM EDT us Nan Laurent NP LAB URINE ORDERABLES Fi nal Result [facility] [address] [place] [address], [place] [phone] * Culture urine (03/31/2025 2:00 PM EDT) Culture, Urine No growth 04/01/2025 7:42 AM EDT [facility] Urine Urine specimen obtained by clean catch procedure / Unknown 03/31/2025 2:00 PM EDT 03/31/2025 3:38 PM EDT us Nan Laurent ARCHITECTURAL JOB CAPTAIN LAB MICROBIOLOGY - GENE RAL ORDERABLES Final Result [facility] ([facility] [address] [place] [address], [place] [phone] from Last 3 Months Insurance [facility] MEDICARE ADVANTAGE on file Advance Directives Documents on File Type Date Recorded 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
--- NOTE | 2025-04-23 15:36 | A.OFFVIS_ITS ---
Vital Signs 04/23/25 15:47 Height 5 ft 2 in Weight 203 lb 6 oz BMI 37.2 BP 140/68 H Blood Pressure Location Rt brachial Position Sitting Pulse 78 Pulse Source Pulse Oximeter Pulse Oximetry (%) 94 Oxygen Delivery Method Room Air Intake Visit Reasons: COPD Allergies nitrofurantoin (From Macrobid) Allergy (Intermediate, Verified 03/30/25 13:31) Difficulty Breathing Penicillins Allergy (Intermediate, Verified 03/30/25 13:31) Hives Iodinated Contrast Media (IV Contrast Dye) Allergy (Mild, Verified 03/30/25 13:31) Itching HPI HPI COPD: Details: Susannah is a pleasant 79-year-old female, former 20 pack year smoker, quit 40 years ago with underlying COPD, ELEAZAR on CPAP . At the last visit she was started on Trelegy in place on [place] and initially did not note any improvements however has had improvements in cough. She has used for almost three weeks and advised to trial another week to assess for further improvements. We also discussed importance of reflux diet to assess for improvements as previously she was using PPI with good effect. She continues with dyspnea, denies BLE edema or orthopnea. Prior PFT 2023 revealed mild obstructive defect. CXR 07/2024 essentially unremarkable other than right rib deformities. 6MWT performed in office at the last visit and the patient does not require supplemental oxygen at this time. [facility] Social History (Updated 03/30/25 @ 13:31 by Alanna Segal [facility]) Patient Tobacco Use Status: Former Tobacco user Review of Systems Const Denies chills, Denies excessive sweating, Denies fever(s), Denies headache(s) and Denies night sweats Eyes Denies dry eyes, Denies irritation and Denies itchy eyes ENT Reports Normal hearing present, Denies headache(s) and Denies sore throat Card Denies chest pain, Denies chest pain at rest, Denies chest pain with activity, Denies claudication, Denies leg edema, Denies orthopnea and Denies paroxysmal nocturnal dyspnea Resp Denies chest congestion, Denies excessive phlegm production, Denies pain on inspiration, Denies pain with cough and Denies stridor Musc Denies myalgias Neuro Reports Normal hearing present and Denies headache(s) Endo Denies excessive sweating Rahul/Lymph Denies lymphadenopathy Aller/Immun Denies itchy eyes and Denies seasonal rhinorrhea Physical Exam Vital Signs: Last Vital Signs Pulse 78 04/23/25 15:47 BP 140/68 H 04/23/25 15:47 Pulse Ox 94 04/23/25 15:47 Oxygen Delivery Method Room Air 04/23/25 15:47 BMI result Body Mass Index 37.2 Const General: cooperative, healthy appearing, comfortable, no acute distress, well developed and alert Nutritional Appearance: obese Orientation/consciousness: patient oriented x3 Limitations: no limitations HEENT Head: Yes normal to inspection, Yes normocephalic and Yes atraumatic Ears: hearing grossly normal bilaterally and external ears normal Eyes General: appearance normal, both eyes and all related structures Eyelids: Yes eyelids normal Sclerae: sclerae normal EOM: EOMs intact bilaterally Neck Neck: Yes normal visual inspection and Yes no lymphadenopathy Lymphatic: no lymphadenopathy noted Chest Chest palpation & inspection: normal inspection of the chest Resp Effort & Inspection: normal respiratory effort, able to speak in complete sentences, no audible wheezes, no cough, no stridor, not tachypneic, no tripod positioning and no use of accessory muscles Auscultation: clear to auscultation bilaterally Cardio Jugular venous distension: no JVD Rate: regular rate Rhythm: regular rhythm Skin Other: warm, dry General skin exam: no rashes or lesions noted Neuro General: patient oriented x3 Cranial nerves: Yes Normal hearing present Cognition (Neuro): normal cognition Gait exam (Neuro): Normal gait present Extrem General: Yes normal to inspection, Yes capillary refill normal, Yes no clubbing, cyanosis or edema and Yes no pedal edema Psych Appearance: grossly normal and well kempt Speech and movement: Normal speech and movement present and Clear speech present Affect: normal affect Attitude: cooperative Thought process: Normal thought process present Thought content: Normal thought content present Insight: Good insight present (Psych) Judgement: Good judgement present (Psych) Assessment & Plan Assessment & Plan (1) COPD (chronic obstructive pulmonary disease): Code(s): J44.9 - Chronic obstructive pulmonary disease, unspecified Category: Medical (2) ELEAZAR on CPAP: Code(s): G47.33 - Obstructive sleep apnea (adult) (pediatric) Category: Medical Plan Encouraged patient to continue to trial Trelegy as well as albuterol MDI. Discussed importance of reflux diet. Prior CXR revealed right rib deformities otherwise unremarkable. May need to consider chest CT if cough persists. Advised patient to continue using the CPAP machine, awaiting access to machine from [employer] to review data for pressure settings and efficacy evaluation. All questions were answered and patient is in agreement of plan. Will follow-up for regularly scheduled appointment or sooner if needed. Coding Level of Care Code Est Pt Level 3 (87782) Diagnoses COPD (chronic obstructive pulmonary disease) J44.9 ELEAZAR on CPAP G47.33
[2025-04-23 15:47] VITALS: BP 140/68; PULSE 78; O2SAT 94; BMI 37.2
== END 2025-04-23 15:58 | disposition home or self-care (01) ==
LOC: HO.HPSW 15:17
PROVIDERS: PCP Internal Medicine; Visit Provider Nurse Practitioner Family
DX: J44.9 Chronic obstructive pulmonary disease, unspecified (principal); G47.33 Obstructive sleep apnea (adult) (pediatric)
CPT/HCPCS: 99213

== ENCOUNTER 2025-05-26 14:22 | Outpatient (AMB) | payer OTHER, SELFPAY ==
--- NOTE | 2025-05-26 14:24 | A.OFFVIS_ITS ---
Vital Signs 05/26/25 14:25 Height 5 ft 2 in Weight 204 lb BMI 37.3 BP 130/62 Blood Pressure Location Rt brachial Position Sitting Pulse 64 Pulse Source Pulse Oximeter Pulse Oximetry (%) 95 Oxygen Delivery Method Room Air Intake Visit Reasons: COPD Allergies nitrofurantoin (From Macrobid) Allergy (Intermediate, Verified 05/26/25 14:30) Difficulty Breathing Penicillins Allergy (Intermediate, Verified 05/26/25 14:30) Hives Iodinated Contrast Media (IV Contrast Dye) Allergy (Mild, Verified 05/26/25 14:30) Itching HPI HPI COPD: Details: Susannah is a pleasant 79-year-old female, former 20 pack year smoker, quit 40 years ago with underlying COPD, ELEAZAR on CPAP. At the last visit she was started on Trelegy in place on [place] and initially did not note any improvements however has had resolution of cough and wheezing. She also notes improvements in dyspnea and has increased activity, now engaging in pool kym. Prior PFT 2023 revealed mild obstructive defect. CXR 07/2024 essentially unremarkable other than right rib deformities. 6MWT performed in office at the last visit and the patient does not require supplemental oxygen at this time. She denies any visits to urgent care or hospitalizations related to respiratory distress since the last visit. Today she presents to review CPAP compliance report. DME is Rena. [facility] Social History (Reviewed 05/26/25 @ 14:29 by Alanna Segal [facility]) Patient Tobacco Use Status: Former Tobacco user Review of Systems Const Denies chills, Denies excessive sweating, Denies fever(s), Denies headache(s) and Denies night sweats Eyes Denies dry eyes, Denies irritation and Denies itchy eyes ENT Reports Normal hearing present, Denies headache(s), Denies nasal congestion, Denies nasal discharge, Denies post nasal drip and Denies sore throat Card Denies chest pain, Denies chest pain at rest, Denies chest pain with activity, Denies claudication, Denies leg edema, Denies dyspnea, Denies dyspnea on exertion, Denies orthopnea and Denies paroxysmal nocturnal dyspnea Resp Denies chest congestion, Denies cough, Denies excessive phlegm production, Denies pain on inspiration, Denies pain with cough, Denies dyspnea, Denies dyspnea on exertion, Denies stridor and Denies wheezing Musc Denies myalgias Neuro Reports Normal hearing present and Denies headache(s) Endo Denies excessive sweating Rahul/Lymph Denies lymphadenopathy Aller/Immun Denies itchy eyes, Denies seasonal rhinorrhea and Denies wheezing Physical Exam Vital Signs: Last Vital Signs Pulse 64 05/26/25 14:25 BP 130/62 05/26/25 14:25 Pulse Ox 95 05/26/25 14:25 Oxygen Delivery Method Room Air 05/26/25 14:25 BMI result Body Mass Index 37.3 Const General: cooperative, healthy appearing, comfortable, no acute distress, well developed and alert Nutritional Appearance: obese Orientation/consciousness: patient oriented x3 Limitations: no limitations HEENT Head: Yes normal to inspection, Yes normocephalic and Yes atraumatic Ears: hearing grossly normal bilaterally and external ears normal Eyes General: appearance normal, both eyes and all related structures Eyelids: Yes eyelids normal Sclerae: sclerae normal EOM: EOMs intact bilaterally Neck Neck: Yes normal visual inspection and Yes no lymphadenopathy Lymphatic: no lymphadenopathy noted Chest Chest palpation & inspection: normal inspection of the chest Resp Effort & Inspection: normal respiratory effort, able to speak in complete sentences, no audible wheezes, no cough, no stridor, not tachypneic, no tripod positioning and no use of accessory muscles Auscultation: clear to auscultation bilaterally Cardio Jugular venous distension: no JVD Rate: regular rate Rhythm: regular rhythm Skin Other: warm, dry General skin exam: no rashes or lesions noted Neuro General: patient oriented x3 Cranial nerves: Yes Normal hearing present Cognition (Neuro): normal cognition Gait exam (Neuro): Normal gait present Extrem General: Yes normal to inspection, Yes capillary refill normal, Yes no clubbing, cyanosis or edema and Yes no pedal edema Psych Appearance: grossly normal and well kempt Speech and movement: Normal speech and movement present and Clear speech present Affect: normal affect Attitude: cooperative Thought process: Normal thought process present Thought content: Normal thought content present Insight: Good insight present (Psych) Judgement: Good judgement present (Psych) Assessment & Plan Assessment & Plan (1) COPD (chronic obstructive pulmonary disease): Code(s): J44.9 - Chronic obstructive pulmonary disease, unspecified Category: Medical (2) ELEAZAR on CPAP: Code(s): G47.33 - Obstructive sleep apnea (adult) (pediatric) Category: Medical Plan At this time, patient reports good control of respiratory symptoms on current regimen, advised to continue Trelegy and albuterol MDI PRN. She is aware to call if symptoms change. Reviewed compliance report and patient has been using CPAP therapy in APAP mode with pressures 5-12 cmH20, using >4 hours per night 97% of the time for the last 30 days, AHI 2.5 with moderate leaking. Discussed the likelihood of the mask contributing to leaking which she was agreeable to adjust however is not interested in trialing alternative masks, as she feels the nasal pillows are most comfortable. Will continue to monitor. Will follow-up in 3 months or sooner if needed. Coding Level of Care Code Est Pt Level 4 (77149) Diagnoses COPD (chronic obstructive pulmonary disease) J44.9 ELEAZAR on CPAP G47.33
[2025-05-26 14:25] VITALS: BP 130/62; PULSE 64; O2SAT 95; BMI 37.3
== END 2025-05-26 15:01 | disposition home or self-care (01) ==
LOC: HO.HPSW 14:23
PROVIDERS: PCP Internal Medicine; Visit Provider Nurse Practitioner Family
DX: J44.9 Chronic obstructive pulmonary disease, unspecified (principal); G47.33 Obstructive sleep apnea (adult) (pediatric)
CPT/HCPCS: 99214